=== PATIENT | female | born 1950 | race Caucasian/White ===

== ENCOUNTER 2018-10-31 07:44 | Emergency (ER) | payer OTHER ==
--- NOTE | 2018-10-31 08:39 | EDPHYS ---
Physician Documentation [facility] Name: Emily Crowder Age: 68 yrs Sex: Female : 1950 Arrival Date: 10/31/2018 Time: 07:47 Bed 13 Private MD: ED Physician Jimenez Duncan HPI: 10/31 08:31 This 68 yrs old Female presents to ER via Ambulatory with complaints of justice Constipation. 08:31 The patient presents with abdominal pain in the lower abdomen. Onset: The justice symptoms/episode began/occurred 5 day(s) ago. The symptoms do not radiate. Associated signs and symptoms: Pertinent positives: constipation. The symptoms are described as crampy. Modifying factors: The symptoms are alleviated by bm. the symptoms are aggravated by no bm. Severity of pain: At its worst the pain was mild in the emergency department the pain is unchanged. The patient has experienced similar episodes in the past, multiple times. Historical: - Allergies: 07:57 No Known Allergies; ss - Home Meds: 07:57 lisinopril-hydrochlorothiazide oral oral once daily [Active]; ss - PMHx: 07:57 Hypertension; ss - PSHx: 07:57 Cholecystectomy; ss - Immunization history:: Adult Immunizations up to date. - Social history:: Smoking status: Patient uses tobacco products, smokes one pack cigarettes per day. - Ebola Screening: : Patient denies exposure to infectious person Patient denies travel to an Ebola-affected area in the 21 days before illness onset. - Family history:: not pertinent. ROS: 08:31 Constitutional: Negative for fever, chills, and weight loss, Eyes: Negative for injury, justice pain, redness, and discharge, ENT: Negative for injury, pain, and discharge, Neck: Negative for injury, pain, and swelling, Cardiovascular: Negative for chest pain, palpitations, and edema, Respiratory: Negative for shortness of breath, cough, wheezing, and pleuritic chest pain, Back: Negative for injury and pain, : Negative for injury, bleeding, discharge, and swelling, MS/Extremity: Negative for injury and deformity, Skin: Negative for injury, rash, and discoloration, Neuro: Negative for headache, weakness, numbness, tingling, and seizure, Psych: Negative for depression, anxiety, suicide ideation, homicidal ideation, and hallucinations, Allergy/Immunology: Negative for hives, rash, and allergies, Endocrine: Negative for neck swelling, polydipsia, polyuria, polyphagia, and marked weight changes, Hematologic/Lymphatic: Negative for swollen nodes, abnormal bleeding, and unusual bruising. 08:31 Abdomen/GI: Positive for abdominal pain, constipation, of the right upper quadrant, left upper quadrant, right lower quadrant and left lower quadrant. Exam: 08:31 Constitutional: This is a well developed, well nourished patient who is awake, alert, justice and in no acute distress. Head/Face: Normocephalic, atraumatic. Eyes: Pupils equal round and reactive to light, extra-ocular motions intact. Lids and lashes normal. Conjunctiva and sclera are non-icteric and not injected. Cornea within normal limits. Periorbital areas with no swelling, redness, or edema. ENT: Nares patent. No nasal discharge, no septal abnormalities noted. Tympanic membranes are normal and external auditory canals are clear. Oropharynx with no redness, swelling, or masses, exudates, or evidence of obstruction, uvula midline. Mucous membranes moist. Neck: Trachea midline, no thyromegaly or masses palpated, and no cervical lymphadenopathy. Supple, full range of motion without nuchal rigidity, or vertebral point tenderness. No Meningismus. Chest/axilla: Normal chest wall appearance and motion. Nontender with no deformity. No lesions are appreciated. Cardiovascular: Regular rate and rhythm with a normal S1 and S2. No gallops, murmurs, or rubs. Normal PMI, no JVD. No pulse deficits. Respiratory: Lungs have equal breath sounds bilaterally, clear to auscultation and percussion. No rales, rhonchi or wheezes noted. No increased work of breathing, no retractions or nasal flaring. Back: No spinal tenderness. No costovertebral tenderness. Full range of motion. Female : Normal external genitalia. Skin: Warm, dry with normal turgor. Normal color with no rashes, no lesions, and no evidence of cellulitis. MS/ Extremity: Pulses equal, no cyanosis. Neurovascular intact. Full, normal range of motion. Neuro: Awake and alert, GCS 15, oriented to person, place, time, and situation. Cranial nerves II-XII grossly intact. Motor strength 5/5 in all extremities. Sensory grossly intact. Cerebellar exam normal. Normal gait. Psych: Awake, alert, with orientation to person, place and time. Behavior, mood, and affect are within normal limits. 08:31 Abdomen/GI: Inspection: abdomen appears normal, Bowel sounds: normal, Palpation: nontender, Rectal exam: hemorrhoid(s), are not appreciated, swelling, is not appreciated, tenderness, that is mild, fecal impaction, that is moderate, Liver: no appreciated palpable abnormalities, Hernia: not appreciated. Vital Signs: 07:57 BP 146 / 82; Pulse 101; Resp 16; Temp 97.8(O); Pulse Ox 97% on R/A; Weight 68.04 kg; ss Height 5 ft. 2 in. (157.48 cm); Pain 6/10; 09:00 BP 132 / 78; Pulse 92; Resp 15; Pulse Ox 100% on R/A; hb 07:57 Body Mass Index 27.44 (68.04 kg, 157.48 cm) ss MDM: 07:50 Patient medically screened. [facility] 08:38 Data reviewed: vital signs, nurses notes, radiologic studies. [facility] 10/31 08:31 Order name: Abdomen 1 View (KUB) XRAY justice Administered Medications: 03:30 Drug: Dulcolax Suppository 10 mg Route: AR; hb 09:15 Follow up: Response: No adverse reaction hb 08:21 Not Given (Duplicate Order): Lactulose 30 grams 45 ml PO once [facility] 08:48 Drug: Lactulose 60 grams Volume: 45 ml; Route: PO; hb 09:30 Follow up: Response: No adverse reaction hb 09:42 Not Given (Patient Refused): Fleet Enema 133 ml AR once; may repeat once hb 09:45 Not Given (Patient Refused): NS 0.9% 1000 ml IV at 1 bolus Per protocol; 1000 mL bolus hb Disposition: 10/31/18 08:39 Discharged to Home. Impression: Constipation. - Condition is Stable. - Discharge Instructions: Constipation, Adult, Constipation, Adult, [id number]. - Prescriptions for Lactulose 10 gram/15 mL Oral Solution - take 30 milliliter by ORAL route once daily; 300 milliliter. Dulcolax 10 mg Rectal Suppository - insert 1 suppository by RECTAL route every 12 hours As needed; 10 suppository. Metamucil (with sugar) - take 2 Tablespoon by ORAL route 2 times per day 20 oz of water per dose; 1 bottle. - Medication Reconciliation Form, Thank You Letter, Antibiotic Education, Prescription Opioid Use form. - Follow up: Private Physician; When: 2 - 3 days; Reason: Recheck today's complaints, Continuance of care, Re-evaluation by your physician. Follow up: Sharath Chua MD; When: 2 - 3 days; Reason: Recheck today's complaints, Continuance of care, Re-evaluation by your physician. - Problem is new. - Symptoms have improved. Signatures: Dispatcher [employer] EDMS Jimenez Duncan MD MD cha Smirch, Shelby, RN RN Kim Chandra RN RN hb Corrections: (The following items were deleted from the chart) 08:26 07:57 Creatinine for Radiology+C.LAB.BRZ ordered. EDMS EDMS 08:26 07:57 Urine Culture+BA.LAB.BRZ ordered. EDMS EDMS 08:29 07:57 BASIC METABOLIC PANEL+C.LAB.BRZ ordered. EDMS EDMS 08:29 07:57 HEPATIC FUNCTION+C.LAB.BRZ ordered. EDMS EDMS 08:29 07:57 LIPASE+C.LAB.BRZ ordered. EDMS EDMS 08:30 07:57 CBC+H.LAB.BRZ ordered. EDMS EDMS 09:49 08:39 10/31/2018 08:39 Discharged to Home. Impression: Constipation. Condition is hb Stable. Forms are Medication Reconciliation Form, Thank You Letter, Antibiotic Education, Prescription Opioid Use. Follow up: Private Physician; When: 2 - 3 days; Reason: Recheck today's complaints, Continuance of care, Re-evaluation by your physician. Follow up: Sharath Chua; When: 2 - 3 days; Reason: Recheck today's complaints, Continuance of care, Re-evaluation by your physician. Problem is new. Symptoms have improved. justice
--- NOTE | 2018-10-31 08:39 | ER ---
Nurse's Notes [facility] Name: Emily Crowder Age: 68 yrs Sex: Female : 1950 Arrival Date: 10/31/2018 Time: 07:47 Bed 13 Private MD: Diagnosis: Constipation Presentation: 10/31 07:54 Presenting complaint: Patient states: "I tried mag citrate last night, but I'm impacted ss and once I get passed that, i'll be good." Pt reports last BM was 1-2 days ago. Transition of care: patient was not received from another setting of care. Onset of symptoms was October 29, 2018. Risk Assessment: Do you want to hurt yourself or someone else? Patient reports no desire to harm self or others. Initial Sepsis Screen: Does the patient meet any 2 criteria? No. Patient's initial sepsis screen is negative. Does the patient have a suspected source of infection? No. Patient's initial sepsis screen is negative. Care prior to arrival: None. 07:54 Method Of Arrival: Ambulatory ss 07:54 Acuity: ONDINA 4 ss Historical: - Allergies: 07:57 No Known Allergies; ss - Home Meds: 07:57 lisinopril-hydrochlorothiazide oral oral once daily [Active]; ss - PMHx: 07:57 Hypertension; ss - PSHx: 07:57 Cholecystectomy; ss - Immunization history:: Adult Immunizations up to date. - Social history:: Smoking status: Patient uses tobacco products, smokes one pack cigarettes per day. - Ebola Screening: : Patient denies exposure to infectious person Patient denies travel to an Ebola-affected area in the 21 days before illness onset. - Family history:: not pertinent. Screenin:50 Abuse screen: Denies threats or abuse. Denies injuries from another. Nutritional ss screening: No deficits noted. Tuberculosis screening: No symptoms or risk factors identified. Never had TB. Fall Risk None identified. Assessment: 07:50 General: Appears in no apparent distress. comfortable, Behavior is calm, cooperative, ss Denies fever, feeling ill, fatigue, chills. General: Constipation x 1-2 days. Pt reports that normally, she will have a BM every 1-2 days. Pt c/o abd cramping after mag citrate and rectal soreness from impaction. Pain: Complains of pain in abdomen Pain currently is 6 out of 10 on a pain scale. Quality of pain is described as crampy, Pain began Is continuous. Pain:. Neuro: Level of Consciousness is awake, alert, obeys commands, Oriented to person, place, time, situation, Medical Appointment Clerk are equal bilaterally Moves all extremities. Full function Gait is steady, Speech is normal, Facial symmetry appears normal, Pupils are PERRLA, Denies weakness dizziness, headache. Cardiovascular: Capillary refill < 3 seconds is brisk in bilateral fingers Patient's skin is warm and dry. Respiratory: Respiratory effort is even, labored, Respiratory pattern is regular, symmetrical. GI: Bowel sounds present X 4 quads. Abd is soft and non tender X 4 quads. Reports constipation, Patient currently denies diarrhea, nausea, vomiting. : Denies burning with urination, urinary frequency. EENT: Nares are clear Oral mucosa is moist. Throat is clear. Derm: Skin is intact, is healthy with good turgor, Skin is dry, Skin is pink, warm \\T\\ dry. normal. Musculoskeletal: Circulation, motion, and sensation intact. Capillary refill < 3 seconds, is brisk, in bilateral fingers. Range of motion: intact in all extremities, Swelling absent. 08:10 Reassessment: Awaiting for Dr. Duncan to see patient. Pt ambulated with steady gait ss to restroom to obtain urine specimen, able to give specimen at this time. CT at bedside to take patient to CT. Pt is upset that CT is ordered, and has refused testing. Dr. Duncan notified. 08:14 Reassessment: Dr. Duncan at bedside. hb 09:02 Reassessment: Pt ambulated to bathroom with stead gait, BM x 1. Reports feeling better, hb is not wanting to do enema at this time. 09:46 Reassessment: Pt ambulated to bathroom with steady gait, reports several large bowel hb movements with symptom relief, ready to go home. Vital Signs: 07:57 BP 146 / 82; Pulse 101; Resp 16; Temp 97.8(O); Pulse Ox 97% on R/A; Weight 68.04 kg; ss Height 5 ft. 2 in. (157.48 cm); Pain 6/10; 09:00 BP 132 / 78; Pulse 92; Resp 15; Pulse Ox 100% on R/A; hb 07:57 Body Mass Index 27.44 (68.04 kg, 157.48 cm) ED Course: 07:47 Patient arrived in ED. as 07:50 Jimenez Duncan MD is Attending Physician. justice 07:50 Patient has correct armband on for positive identification. Bed in low position. Call ss light in reach. 07:50 Patient maintains SpO2 saturation greater than 95% on room air. 07:56 Triage completed. ss 07:57 Arm band placed on right wrist. ss 08:23 Kim Chandra, RN is Primary Nurse. hb 08:38 Sharath Chua MD is Referral Physician. [facility] 08:52 X-ray completed. Portable x-ray completed in exam room. Patient tolerated procedure jb2 well. 08:52 Abdomen 1 View (KUB) XRAY In Process Unspecified. EDMS 09:00 No provider procedures requiring assistance completed. Patient did not have IV access hb during this emergency room visit. Administered Medications: 03:30 Drug: Dulcolax Suppository 10 mg Route: SC; hb 09:15 Follow up: Response: No adverse reaction hb 08:21 Not Given (Duplicate Order): Lactulose 30 grams 45 ml PO once justice 08:48 Drug: Lactulose 60 grams Volume: 45 ml; Route: PO; hb 09:30 Follow up: Response: No adverse reaction hb 09:42 Not Given (Patient Refused): Fleet Enema 133 ml SC once; may repeat once hb 09:45 Not Given (Patient Refused): NS 0.9% 1000 ml IV at 1 bolus Per protocol; 1000 mL bolus hb Outcome: 08:39 Discharge ordered by . justice 09:00 Discharged to home ambulatory. hb 09:00 Condition: stable 09:00 Discharge instructions given to patient, Instructed on discharge instructions, follow up and referral plans. medication usage, Demonstrated understanding of instructions, follow-up care, medications, Prescriptions given X 3. 09:49 Patient left the ED. hb Signatures: Dispatcher [employer] EDWV Jimenez Duncan MD MD cha Buechter, Jesse jb2 Lindsay Munson Shelby, CHERELLE RN Kim Chandra, CHERELLE RN hb
[2018-10-31] MEDS ORDERED: BISACODYL 10 MG RECTAL SUPP ONE (08:40)
[2018-10-31] MEDS ORDERED: LACTULOSE 20 GM/30 ML UCUP ONE (08:55)
[2018-10-31] MEDS ORDERED: FLEET ENEMA ADULT PR ONE (09:02)
--- NOTE | 2018-10-31 09:30 | RAD REPORT ---
EXAM DESCRIPTION: RAD - Abdomen 1 View (KUB) - 10/31/2018 8:52 am CLINICAL HISTORY: Abdominal pain, constipation COMPARISON: None. FINDINGS: Moderate stool volume is present filling but not distending the left side colon from splen ic flexure to distal rectum. Cholecystectomy clips are present. No obstruction, free air or pneumatos is. No suspicious calcifications. Lower lumbar bony degenerative changes are present. IMPRESSION: Moderate stool volume fills but does not distend the left side colon. No obstruction, free air or significant or emergent finding otherwise noted.
== END 2018-10-31 09:49 | disposition home or self-care (01) ==
LOC: ER 07:44
DX: K59.00 Constipation, unspecified (principal); I10 Essential (primary) hypertension
CPT/HCPCS: 74018; 99284